=== PATIENT | female | born 1970 | race Caucasian/White ===

== ENCOUNTER 2016-08-07 05:28 | Inpatient (IN) | payer OTHER ==
[2016-08-05 13:02] VITALS: BMI 30.7
[2016-08-07] MEDS ORDERED: CEFAZOLIN 1 GM/D5W 50 ML IP ONE (07:09)
[2016-08-07] MEDS ORDERED: ceFAZolin SODIUM 1 GM VIAL ONE (07:52)
[2016-08-07] MEDS ORDERED: BUPIVACAINE HCL/PF 0.5% (5MG/ML) 10 ML VIAL ONE (08:17)
[2016-08-07] MEDS ORDERED: PROPOFOL 20 ML ONE (08:24)
[2016-08-07] MEDS ORDERED: ROCURONIUM BROMIDE 50 MG/5 ML VIAL ONE ×2 (08:24→09:08)
[2016-08-07] MEDS ORDERED: MIDAZOLAM HCL 2 MG/2 ML SINGLE DOSE VIAL ONE (08:24)
[2016-08-07] MEDS ORDERED: LIDOCAINE HCL 2% 100 MG/5 ML DISP.SYRIN ONE (08:32)
--- NOTE | 2016-08-07 08:33 | HP ---
History & Physical Update - History History: No Change - Physical Physical: No Change - Assessment Assessment: No Change - Plan Plan: No Change (Fibroids and menorrhagia - for robotic assisted laparoscopic total hysterectomy and bilateral salpingectomy)
[2016-08-07] MEDS ORDERED: ceFAZolin SODIUM 1 GM VIAL IVPB ONE (08:47)
[2016-08-07] MEDS ORDERED: DEXAMETHASONE SOD PHOSPHATE 4 MG/1 ML VIAL ONE (08:48)
[2016-08-07] MEDS ORDERED: BUPIVACAINE HCL/PF 0.5% (5MG/ML) 10 ML VIAL IJ ONE (10:29)
[2016-08-07] MEDS ORDERED: GLYCOPYRROLATE 0.2 MG/1 ML VIAL ONE ×2 (10:37)
[2016-08-07] MEDS ORDERED: NEOSTIGMINE METHYLSULFATE 0.5 MG/ML - 10 ML MDV ONE (10:37)
--- NOTE | 2016-08-07 10:56 | OP ---
Operative Note - Note: Operative Date: 08/07/16 Pre-Operative Diagnosis: fibroids, menorrhagia Operation: robotic assisted laparoscopic total hysterectomy and bilateral salpingectomy Findings: normal bilateral tubes/ovaries enlarged fibroid uterus Post-Operative Diagnosis: Same as Pre-op Surgeon: Veronica Webb Sugar Controller: Yas Cornell Anesthesiologist/DISC SANDER: Favian Lewis Anesthesia: General Specimens Removed: uterus, cervix, bilateral fallopian tubes, fibroid Estimated Blood Loss (mls): 50 Drains, Volume Out (mls): 50 (clear yellow urine) Operative Report Dictated: Yes
[2016-08-07] MEDS ORDERED: IBUPROFEN 800 MG/8 ML IJ IVPB PRN (11:01)
[2016-08-07] MEDS ORDERED: ACETAMINOPHEN 325 MG TABLET (FP) PO PRN (11:01)
[2016-08-07] MEDS ORDERED: IBUPROFEN 600 MG TABLET (FP) PO PRN ×2 (11:01→11:04)
[2016-08-07] MEDS ORDERED: SIMETHICONE 80 MG TAB.CHEW (FP) PO PRN (11:01)
[2016-08-07] MEDS ORDERED: PROMETHAZINE HCL 25 MG/1 ML VIAL IVPUSH PRN (11:02)
[2016-08-07] MEDS ORDERED: ONDANSETRON 4 MG/2 ML VIAL IVPUSH PRN (11:02)
[2016-08-07] MEDS ORDERED: ONDANSETRON 4 MG/2 ML VIAL IVPB PRN (11:07)
[2016-08-07] MEDS: oxyCODONE HCL 5 MG TABLET PO PRN ×2 (14:06→21:48)
[2016-08-07] MEDS: CEFAZOLIN (PRE-DOCKED) 50 ML IVPB SCH (16:21)
[2016-08-07] MEDS: HYDROmorphone HCL CARPU-JECT 1 MG/1 ML DISP.SYRIN IM PRN ×2 (16:39→22:44)
[2016-08-07] MEDS ORDERED: BUDESONIDE/FORMETEROL FUMARATE 80/4.5 mcg INHALER IH PRN (18:00)
[2016-08-07] MEDS: GABAPENTIN 300 MG CAPSULE (FP) PO SCH ×2 (18:05→21:49)
[2016-08-07] MEDS: ALBUTEROL SO4 6.7 GM HFA INHALER IH SCH ×2 (18:05→21:49)
[2016-08-07] MEDS: ACETAMINOPHEN/CAFFEINE/BUTALBITAL 1 TAB PO SCH (21:49)
[2016-08-07] MEDS: clonazePAM 0.5 MG TABLET PO PRN (21:53)
[2016-08-08] MEDS: CEFAZOLIN (PRE-DOCKED) 50 ML IVPB SCH ×2 (00:09→09:32)
[2016-08-08] MEDS: LACTATED RINGERS SOLUTION 1,000 ML IV SCH ×2 (00:09→11:31)
[2016-08-08] MEDS: ACETAMINOPHEN/CAFFEINE/BUTALBITAL 1 TAB PO SCH ×2 (05:43→14:05)
[2016-08-08] MEDS: oxyCODONE HCL 5 MG TABLET PO PRN (05:43)
[2016-08-08] MEDS: HYDROmorphone HCL CARPU-JECT 1 MG/1 ML DISP.SYRIN IM PRN (06:52)
[2016-08-08 07:37] LABS: BASOPHIL 0.3 % (0-2.0); EOSINOPHIL 0.4 % (0-4.5); MCH 29.6 pg (25.7-33.7); MCHC 34.1 g/dl (32.0-36.0); MEAN CELL VOLUME 86.8 fl (80-96); MEAN PLT VOLUME 7.9 fl (7.5-11.1); NEUTROPHILS 61.2 % (42.8-82.8); PLATELET COUNT 285 K/MM3 (134-434); RDW 13.5 % (11.6-15.6); WHITE BLOOD COUNT 14.3 K/mm3 (4.0-10.0)
[2016-08-08] MEDS ORDERED: oxyCODONE HCL 5 MG TABLET PO PRN ×2 (08:10→08:12)
--- NOTE | 2016-08-08 08:21 | PN ---
Progress Note, Physician Chief Complaint: s/p robotic hysterectomy bilateral salpingectomy under general anesthesia History of Present Illness: post op day one - Current Medication List Current Medications: Active Medications Acetaminophen (Tylenol -) 650 mg PO Q4H PRN PRN Reason: FEVER OR PAIN Acetaminophen/Butalbital/Caffeine (Fioricet -) 1 tablet PO TID [facility] Last Admin: 08/08/16 05:43 Dose: 1 tablet Albuterol Sulfate (Ventolin Hfa Inhaler -) 2 puff IH BID [facility] Last Admin: 08/07/16 21:49 Dose: 2 puff Atenolol (Tenormin -) 100 mg PO DAILY [facility] Budesonide/Formoterol Fumarate (Symbicort 80/4.5mcg -) 1 puff IH PRN PRN PRN Reason: ASTHMA Chlorthalidone (Hygroton -) 25 mg PO DAILY [facility] Clonazepam (Klonopin -) 1 mg PO BID PRN PRN Reason: ANXIETY Last Admin: 08/07/16 21:53 Dose: 1 mg Enoxaparin Sodium (Lovenox -) 40 mg SQ DAILY [facility] Gabapentin (Neurontin -) 300 mg PO BID [facility] Last Admin: 08/07/16 21:49 Dose: 300 mg Hydromorphone HCl (Dilaudid Injection -) 1 mg IM Q4H PRN PRN Reason: PAIN Last Admin: 08/08/16 06:52 Dose: 1 mg Lactated Ringer's (Lactated Ringers Solution) 1,000 mls @ 125 mls/hr IV ASDIR [facility] Last Admin: 08/08/16 00:09 Dose: 125 mls/hr Ibuprofen (Caldolor Injection -) 800 mg IVPB Q8H PRN PRN Reason: PAIN OR FEVER Last Admin: 08/07/16 11:45 Dose: 800 mg Ibuprofen (Motrin -) 600 mg PO Q4H PRN PRN Reason: PAIN Morphine Sulfate (Ms Contin -) 15 mg PO Q12H [facility] Ondansetron HCl (Zofran Injection) 4 mg IVPB Q6H PRN PRN Reason: NAUSEA Oxycodone HCl (Roxicodone -) 15 mg PO Q4H PRN PRN Reason: PAIN LEVEL 6-10 Oxycodone HCl (Roxicodone -) 10 mg PO Q4H PRN PRN Reason: PAIN LEVEL 1-5 Pantoprazole Sodium (Protonix -) 20 mg PO DAILY [facility] Simethicone (Mylicon -) 80 mg PO Q4H PRN PRN Reason: GAS - Objective Vital Signs: Vital Signs Temperature 98.7 F 08/08/16 05:42 Pulse Rate 82 08/08/16 05:42 Respiratory Rate 20 08/08/16 05:42 Blood Pressure 148/79 08/08/16 05:42 O2 Sat by Pulse Oximetry (%) 96 08/07/16 21:00 Constitutional: Yes: Well Nourished, Mild Distress Cardiovascular: Yes: WNL Respiratory: Yes: WNL Gastrointestinal: Yes: WNL Labs: CBC, BMP 08/08/16 06:25 Assessment/Plan Patient reports no nausea, vomiting or any other adverse effects of anesthetic. Patient reports she is in pain due to her tolerance to opioids secondary to her chronic pain. Her MS Contin dosing has been changed to Q12 dosing from daily dosing (her home regimen) and oxycodone has been changed from 10mg q4H for severe pain to 10mg Q4 hours for mild pain, 15mg Q4H for severe pain.
[2016-08-08] MEDS ORDERED: PT OWN MED DRAWER 7, Y5N ONE (09:11)
[2016-08-08] MEDS: GABAPENTIN 300 MG CAPSULE (FP) PO SCH (09:34)
[2016-08-08] MEDS: ALBUTEROL SO4 6.7 GM HFA INHALER IH SCH (09:34)
[2016-08-08] MEDS ORDERED: PATIENT'S OWN MEDICATION (NON-FORMULARY) (Atenolol/Chlorthalidone [Atenolol-Chlorthalidone PO SCH (10:00)
[2016-08-08] MEDS ORDERED: ENOXAPARIN NA (PORCINE) 40 MG/0.4 ML DISP.SYRIN SQ SCH (10:00)
[2016-08-08] MEDS ORDERED: PANTOPRAZOLE 20 MG TABLET (FP) PO SCH (10:00)
[2016-08-08] MEDS ORDERED: CHLORTHALIDONE 25 MG TABLET PO SCH (10:00)
[2016-08-08] MEDS ORDERED: morphine SO4 SUSTAINED ACTING 15 MG TABLET.SA PO SCH (10:00)
[2016-08-08] MEDS ORDERED: ATENOLOL 50 MG TABLET (FP) PO SCH (10:00)
[2016-08-08] MEDS ORDERED: morphine SO4 SUSTAINED ACTING 30 MG TABLET.SA PO SCH (10:00)
--- NOTE | 2016-08-08 12:12 | PATH ---
Surgical Pathology Report Patient Name: NICK KATZ [facility]. Rec. #: [id number] /Age/Gender: 1970 (Age: 45) / F Account: [id number] Location: [address] [place] [address] Taken: 08/07/2016 Received: 08/07/2016 Reported: 08/08/2016 Physicians: Veronica Webb M.D. Specimen(s) Received A: UTERUS AND CERVIX B: RIGHT FALLOPIAN TUBE C: LEFT FALLOPIAN TUBE Clinical History Subserosal leiomyoma Final Diagnosis A. UTERUS, CERVIX, TOTAL HYSTERECTOMY: CERVIX: WITHOUT SIGNIFICANT PATHOLOGIC CHANGES. ENDOMETRIUM: INACTIVE. MYOMETRIUM: LEIOMYOMATA (LARGEST 3.0 CM). UTERINE SEROSA: WITHOUT SIGNIFICANT PATHOLOGIC CHANGES. B. FALLOPIAN TUBE, RIGHT, SALPINGECTOMY: SMALL PARATUBAL CYSTS, FOCAL FIBRINOHEMORRHAGIC ADHESIONS. C. FALLOPIAN TUBE, LEFT, SALPINGECTOMY: SMALL PARATUBAL CYST, FOCAL FIBRINOHEMORRHAGIC ADHESIONS. Electronically Signed Remington Cardenas M.D. Gross Description A. Received in formalin labeled "uterus, cervix" is a 93 g uterus with an attached cervix and no attached adnexa. The specimen measures 7 cm from superior to inferior, 5 cm from left to right and 6 cm from anterior to posterior. The serosa is pink-jon with focal bulging subserosal nodules. The attached cervix measures 2.5 cm in length and averages 2 cm in diameter. The ectocervix is pink-jon, smooth and glistening. The endocervix is unremarkable. The endometrial cavity measures 3 cm in length and 1.5 cm from cornu to cornu. The endometrium is red and averages 0.1 cm in thickness. The myometrium displays multiple intramural nodules, measuring up to 3.0 cm in greatest dimension. The cut surface of the subserosal and intramural nodules is jon, firm to rubbery and displays whorled architecture. No areas of hemorrhage or necrosis are identified. The remaining myometrium is jon-pink and averages 2.8 cm in thickness. Dial Equipment Engineer sections are submitted in 9 cassettes as follows: 1-anterior cervix; 2-posterior cervix; 0-1-ygmqxoiz endomyometrium; 5-7-ybjhfdtgy endomyometrium; 7-subserosal nodules; 7-8-lwaddjpkel nodules. B. Received in formalin labeled "right fallopian tube" is a 3.5 cm in length fimbriated portion of fallopian tube. The outer surface is jon-purple. Sectioning reveals a pinpoint lumen. Dial Equipment Engineer sections are submitted in 2 cassettes as follows: 1-fimbria; 2-cross sections of fallopian tube. C. Received in formalin labeled "left fallopian tube" is a 2.8 cm in length fimbriated portion of fallopian tube. The outer surface is paul-purple. Sectioning reveals a pinpoint lumen. Dial Equipment Engineer sections are submitted in 2 cassettes as follows: 1-fimbria; 2-cross sections of fallopian tube. 08/07/2016 [facility]08/07/2016
[2016-08-08 12:22] VITALS: TEMP 98
[2016-08-08 13:40] VITALS: BP 135/81; PULSE 74
[2016-08-08] MEDS: clonazePAM 0.5 MG TABLET PO PRN (15:04)
--- NOTE | 2016-08-08 15:04 | PN ---
Progress Note, Physician Chief Complaint: Pt seen/evaluated and overall doing well. Pain somewhat difficult to control due to chronic home narcotic use for chronic pain - anesthesia has adjusted pain meds this a.m. Pt tolerating pain well. Passing flatus, voiding, ambulating. NO CP/SOB/F/c/VAUGHN. Some incisional pain. - Current Medication List Current Medications: Active Medications Acetaminophen (Tylenol -) 650 mg PO Q4H PRN PRN Reason: FEVER OR PAIN Acetaminophen/Butalbital/Caffeine (Fioricet -) 1 tablet PO TID [facility] Last Admin: 08/08/16 05:43 Dose: 1 tablet Albuterol Sulfate (Ventolin Hfa Inhaler -) 2 puff IH BID [facility] Last Admin: 08/08/16 09:34 Dose: 2 puff Atenolol (Tenormin -) 100 mg PO DAILY [facility] Last Admin: 08/08/16 09:34 Dose: 100 mg Budesonide/Formoterol Fumarate (Symbicort 80/4.5mcg -) 1 puff IH PRN PRN PRN Reason: ASTHMA Chlorthalidone (Hygroton -) 25 mg PO DAILY [facility] Last Admin: 08/08/16 09:32 Dose: 25 mg Clonazepam (Klonopin -) 1 mg PO BID PRN PRN Reason: ANXIETY Last Admin: 08/07/16 21:53 Dose: 1 mg Enoxaparin Sodium (Lovenox -) 40 mg SQ DAILY [facility] Last Admin: 08/08/16 09:32 Dose: 40 mg Gabapentin (Neurontin -) 300 mg PO BID [facility] Last Admin: 08/08/16 09:34 Dose: 300 mg Hydromorphone HCl (Dilaudid Injection -) 1 mg IM Q4H PRN PRN Reason: PAIN Last Admin: 08/08/16 06:52 Dose: 1 mg Lactated Ringer's (Lactated Ringers Solution) 1,000 mls @ 125 mls/hr IV ASDIR [facility] Last Admin: 08/08/16 11:31 Dose: 125 mls/hr Ibuprofen (Caldolor Injection -) 800 mg IVPB Q8H PRN PRN Reason: PAIN OR FEVER Last Admin: 08/07/16 11:45 Dose: 800 mg Ibuprofen (Motrin -) 600 mg PO Q4H PRN PRN Reason: PAIN Morphine Sulfate (Ms Contin -) 15 mg PO BID [facility] Last Admin: 08/08/16 09:32 Dose: 15 mg Ondansetron HCl (Zofran Injection) 4 mg IVPB Q6H PRN PRN Reason: NAUSEA Oxycodone HCl (Roxicodone -) 15 mg PO Q4H PRN PRN Reason: PAIN LEVEL 6-10 Oxycodone HCl (Roxicodone -) 10 mg PO Q4H PRN PRN Reason: PAIN LEVEL 1-5 Pantoprazole Sodium (Protonix -) 20 mg PO DAILY [facility] Last Admin: 08/08/16 09:34 Dose: 20 mg Simethicone (Mylicon -) 80 mg PO Q4H PRN PRN Reason: GAS - Objective Vital Signs: Vital Signs Temperature 98.0 F 08/08/16 08:00 Pulse Rate 74 08/08/16 13:31 Respiratory Rate 20 08/08/16 08:00 Blood Pressure 135/81 08/08/16 13:31 O2 Sat by Pulse Oximetry (%) 96 08/08/16 08:00 Constitutional: Yes: Well Nourished, No Distress, Calm Eyes: Yes: Conjunctiva Clear, EOM Intact HENT: Yes: Atraumatic, Normocephalic Neck: Yes: Supple, Trachea Midline Cardiovascular: Yes: Regular Rate and Rhythm Respiratory: Yes: Regular, CTA Bilaterally Gastrointestinal: Yes: Normal Bowel Sounds, Soft, Tenderness (appropriate post surgical tenderness) Genitourinary: No: Vaginal Bleeding Extremities: Yes: WNL (b/l SCDs in place) Edema: No Wound/Incision: Yes: Clean/Dry, Well Approximated Neurological: Yes: Alert, Oriented Psychiatric: Yes: Alert, Oriented Labs: CBC, BMP 08/08/16 06:25 Problem List - Problems (1) History of robot-assisted laparoscopic hysterectomy Assessment/Plan: Pt doing well post operatively Regular diet PO pain meds with IV for breakthrough encourage ambulation Lovenox for VTE PPX Code(s): Z90.710 - ACQUIRED ABSENCE OF BOTH CERVIX AND UTERUS (2) Hypertension Assessment/Plan: Continue home medications - BP WNL Code(s): I10 - ESSENTIAL (PRIMARY) HYPERTENSION (3) Nicotine abuse Assessment/Plan: offered pt. nicotine patch - pt declines, states she is doing well without cigarettes will add on nicotine patch as needed Code(s): Z72.0 - TOBACCO USE (4) Chronic pain disorder Assessment/Plan: pain being controlled with home meds and additional acute pain meds will monitor pain thoughout the day and adjust meds accordingly Code(s): G89.4 - CHRONIC PAIN SYNDROME (5) Anxiety Assessment/Plan: Clonazepam PRN Code(s): F41.9 - ANXIETY DISORDER, UNSPECIFIED
--- NOTE | 2016-08-08 15:06 | DS ---
Physical Examination Vital Signs: Vital Signs Temperature 98.0 F 08/08/16 08:00 Pulse Rate 74 08/08/16 13:31 Respiratory Rate 20 08/08/16 08:00 Blood Pressure 135/81 08/08/16 13:31 O2 Sat by Pulse Oximetry (%) 96 08/08/16 08:00 Constitutional: Yes: Well Nourished, No Distress, Calm Eyes: Yes: Conjunctiva Clear, EOM Intact HENT: Yes: Atraumatic, Normocephalic Neck: Yes: Supple, Trachea Midline Cardiovascular: Yes: Regular Rate and Rhythm Respiratory: Yes: Regular, CTA Bilaterally Gastrointestinal: Yes: Normal Bowel Sounds, Soft Extremities: Yes: WNL Wound/Incision: Yes: Clean/Dry, Well Approximated, Sutures Intact Neurological: Yes: Alert, Oriented Psychiatric: Yes: Alert, Oriented Labs: CBC, BMP 08/08/16 06:25 Discharge Summary Reason For Visit: SUBSEROSAL LEIOMYOMA,FIBROIDS,MENORRHAGIA Current Active Problems Anxiety (Acute) Chronic pain disorder (Acute) History of robot-assisted laparoscopic hysterectomy (Acute) Hypertension (Acute) Nicotine abuse (Acute) Procedures: Principal: Robotic assisted laparoscopic total hysterectomy and b/l salpingectomy Hospital Course: Pt underwent uncomplicated procedure and normal post op recovery. Pt discharged home in stable condition on post op day 1. Condition: Stable - Instructions Diet, Activity, Other Instructions: Physical activity Resume your normal everyday activity as tolerated but no heavy lifting or strenuous exercise until seen by your surgeon. You may walk unlimited amounts and climb stairs. You may resume driving the car when you feel safe and comfortable behind the wheel. No sexual activity as instructed for 8 weeks. Wound care If there is glue on the skin under the out of bandage leave it in place. It will peel off in the next 7 to 10 days. Do Not Peel it off. You may shower the day after surgery. If there are is glue present on the skin, you may shower over it. Diet There are no dietary restrictions. Eat healthy, high-fiber foods. Drink 6 to 8 glasses of liquid each day. This will assist in keeping your bowels regular. Pain management You may take all of your home chronic pain medications as you normally would. You will be prescribed additional medications to take in ADDITION to your chronic pain medications. Please take all of your home medications as prescribed and take the additional prescribed pain medication as needed for your acute post operative pain. Call Dr. Webb for any of the following: Severe pain not relieved by medication Fever of 101 or higher Excessive bleeding or drainage on dressing Inability to urinate Call the office at [phone] for an appointment in 14 days. Referrals: Veronica Webb DO [Staff Physician] - 2 Weeks Disposition: HOME - Home Medications Comprehensive Discharge Medication List: Ambulatory Orders Albuterol Sulfate Inhaler - [Ventolin Hfa Inhaler -] 2 inh PO BID 11/19/15 Atenolol/Chlorthalidone [Atenolol-Chlorthalidone 50-25] 1 each PO DAILY Budesonide/Formeterol Fumarate [SYMBICORT 80/4.5mcg -] 1 inh PO PRN PRN Butalb/Acetaminophen/Caffeine [Fioricet 50-300-40 mg Capsule] 1 each PO TID 02/21 Clonazepam [Klonopin] 1 mg PO BID 11/19/15 Cyclobenzaprine HCl [Flexeril 10 mg] 10 mg PO TID 08/05/16 Gabapentin [Neurontin] 300 mg PO BID 08/05/16 Morphine *Sr* [Ms Contin -] 30 mg PO DAILY 08/05/16 Omeprazole Magnesium [Prilosec] 10 mg PO DAILY 08/05/16 Oxycodone HCl/Acetaminophen [Percocet 10-325 mg Tablet] 1 each PO QID 08/05/16 Ibuprofen [Motrin -] 600 mg PO QID PRN #28 tablet 08/08/16 Oxycodone HCl 5 mg PO Q6H #45 tablet MDD 8 08/08/16
--- NOTE | 2016-08-14 13:16 | OP ---
DATE OF OPERATION: 08/07/2016 PREOPERATIVE DIAGNOSIS: Fibroid uterus, abnormal uterine bleeding. POSTOPERATIVE DIAGNOSIS: Fibroid uterus, abnormal uterine bleeding. PROCEDURE PERFORMED: Robotic-assisted laparoscopic total hysterectomy, bilateral salpingectomy. SURGEON: Veronica Webb DO ECOSYSTEM ECOLOGY PROFESSOR: Yas Cornell MD ANESTHESIOLOGIST: Favian Lewis MD ANESTHESIA: General. ESTIMATED BLOOD LOSS: 50 mL. SPECIMENS: Specimens removed included uterus, cervix, bilateral fallopian tubes and uterine fibroid. COMPLICATIONS: None. COUNTS: Sponge, needle and instrument counts were reported to be correct at the end of the case. DISPOSITION: Stable to PACU. INDICATIONS: The patient is 45-year-old female who had been seen in my office with complaints of several years of heavy menstrual bleeding. The patient had undergone a prior D&C procedure due to the irregular bleeding, with little relief of symptoms. The endometrial pathology was benign on prior sampling. The patient declined conservative therapy and elected to undergo definitive treatment with a hysterectomy. The patient signed consents for the procedure in the office, and the patient was admitted to [facility] on August 07, 2016, where said consents were reconfirmed. DESCRIPTION OF PROCEDURE: The patient and the surgeon were mutually identified in the holding area. The patient was then taken back to the operating room, where she was placed in the dorsal lithotomy position and given general anesthesia by Dr. Lewis. She was then prepped and draped in the usual sterile fashion, and a hard time-out was performed. A VCare uterine manipulator device was placed inside the uterus without difficulty. Next, attention was turned to the abdomen. An 8-mm infraumbilical incision was created and a Veress needle was placed inside the abdomen. The abdomen was insufflated with CO2 gas, and a trocar was placed intra-abdominally. The camera was placed inside the abdomen. After confirmation of intra-abdominal placement, the patient was placed in Trendelenburg position, and the remaining ports and trocars were placed under direct visualization. The robot was then docked. Next, the left utero-ovarian anastomosis was identified. The utero-ovarian ligament was identified, ligated and cut with the vessel sealer device. The left round ligament was identified, cut and ligated with the vessel sealer device. Then the anterior leaf of the broad ligament was dissected off the anterior lower uterine segment to develop the bladder flap. Next, the uterine artery was isolated, ligated and cut in several passes until the level of the uterosacral ligament on the left side. The same process was repeated on the right side, starting with the utero-ovarian ligament and round ligament, which were both ligated, cut and divided with the vessel sealer device. The anterior leaf of the broad ligament on the right side was further developed anteriorly to complete the bladder flap. The uterine arteries on the right side were isolated, ligated and cut with the vessel sealer device until the level of the uterosacral ligament. Next, an anterior colpotomy was created, which was completed in a 360-degree fashion to amputate the uterus and cervix from the cervicovaginal junction. The uterus was then easily removed through the vaginal canal. The left and right fallopian tubes were identified and traced to their fimbriated ends, elevated and dissected off their attachments to the ovaries as well as to the mesosalpinx. These were both removed from the vagina at this time. Next, using 0 V-Loc suture, the vaginal cuff was reapproximated in a running fashion until closure was completed. All surgical sites were noted to be hemostatic. The ureters on bilateral sides were inspected and noted to be within normal caliber and peristalsing. The urine was clear yellow in color at this time. Next, all instruments were removed from the abdominal cavity. The abdomen was desufflated. Trocars were then removed. The skin was reapproximated using 0 Biosyn suture and skin glue. The patient was awoken from anesthesia. Sponge, needle and instrument counts were reported to be correct. The patient was recovering in stable condition in the PACU after the procedure. VERONICA WEBB DO /[id number]
== END 2016-08-08 18:49 | disposition home or self-care (01) | DRG 519 ==
LOC: JASUSAT 05:28 → J6S 13:57 → JASUSAT 13:57 → J6S 19:15
PROVIDERS: ADMIT Obstetrics & Gynecology; ATTEND Obstetrics & Gynecology
PROC: 0UT74ZZ Resection of Bilateral Fallopian Tubes, Percutaneous Endoscopic Approach (ICD-10-PCS; 2016-08-07)
PROC: 8E0W4CZ Robotic Assisted Procedure of Trunk Region, Percutaneous Endoscopic Approach (ICD-10-PCS; 2016-08-07)
PROC: 0UT94ZZ Resection of Uterus, Percutaneous Endoscopic Approach (ICD-10-PCS; principal; 2016-08-07 08:00)
PROC: 0UTC4ZZ Resection of Cervix, Percutaneous Endoscopic Approach (ICD-10-PCS; 2016-08-07 08:00)
DX: D25.9 Leiomyoma of uterus, unspecified (principal); N92.0 Excessive and frequent menstruation with regular cycle; I10 Essential (primary) hypertension; J45.909 Unspecified asthma, uncomplicated; G89.4 Chronic pain syndrome; F11.20 Opioid dependence, uncomplicated; F41.9 Anxiety disorder, unspecified; Z72.0 Tobacco use
CPT/HCPCS: 36415; 80053; 84702; 85025; 86850; 86900; 86901; 88305-TC; 88307-TC; 93005; 93010; 94010; 94760